=== PATIENT | female | born 1965 | race Caucasian/White ===

== ENCOUNTER 2016-12-10 22:45 | Inpatient (IN) | payer BC, MEDICAID ==
[~2016-12-10] VITALS: Ht 162.6 cm; Wt 96.5 kg
[~2016-12-10 22:45] MED LIST: ATEN25TA PO; BLOOD GLUCOSE T1 TES SQ; BUPR150CR PO; CARA1TAB6 PO; DEXTROSE 50% IN WATER 50 ML VIAL(D50) IV PRN; DULE100A INH; GABA600T PO; GLIP5TAB8 PO; GLUCAGON 1 MG/ML VIAL IM PRN; HYDR-3516 PO; INDO25CA PO; LANTUS2P SQ; LISI-519 PO; LORA-392 PO; LURA40 PO; METR-1 PO; NALOXONE HCL 0.4 MG/ML AMP IV PUSH PRN; OMEGCAP PO; PARO10TA2 PO; PEDISOL2 OROPHARYNG; PIPERACIL-TAZO 4.5 GM PREMIX 100 ML IV SCH; PROT40TA PO; RANI150T PO; SODIUM CHLORIDE 0.9% FLUSH 10 ML FLUSH IV FLUSH PRN; TIZA4CAP3 PO; TRAZ50TA12 PO; TRIL135C PO; TRIL45CA PO; VENTAER INH; ZOFR4TAB PO; ZOFR4TAB3 SL
[2016-12-10 22:55] VITALS: BP 127/66; PULSE 74; RESP 18; TEMP 97.9; O2SAT 96
[2016-12-10 23:14] VITALS: PULSE 75
[2016-12-10] MEDS: ONDANSETRON HCL 4 MG/2 ML VIAL IVP PRN (23:44)
[2016-12-10] MEDS: SODIUM CHLORIDE 0.9% FLUSH 10 ML FLUSH IV FLUSH SCH (23:44)
[2016-12-10] MEDS: SODIUM CHLOR 0.9% 1000 ML INJ 1,000 ML IV SCH (23:44)
[2016-12-11] MEDS ORDERED: PIPERACIL-TAZO 4.5 GM PREMIX 100 ML IV ONE
[2016-12-11] MEDS ORDERED: traZODone HCL 100 MG TAB PO ONE (00:25)
[2016-12-11] MEDS ORDERED: FAMOTIDINE 20 MG TAB PO ONE (00:30)
[2016-12-11] MEDS: MORPHINE SULFATE 4 MG/ML INJ IV PUSH PRN ×4 (00:30→16:04)
[2016-12-11 04:00] VITALS: BP 135/76; PULSE 78; RESP 18; TEMP 96.4; O2SAT 96
[2016-12-11] MEDS: PIPERACIL-TAZO 4.5 GM PREMIX 100 ML IV SCH ×3 (06:16→17:33)
[2016-12-11 07:13] LABS: AUTOMATED NEUTROPHIL # 7.9 TH/MM3 (1.8-7.7); BASOPHIL % 0.2 % (0.0-2.0); EOSINOPHIL # 0.2 TH/MM3 (0-0.4); EOSINOPHIL % 1.4 % (0.0-4.0); HEMATOCRIT 33.5 % (35.0-46.0); LYMPH % 26.3 % (9.0-44.0); MEAN CELL VOLUME 60.7 FL (80.0-100.0); MEAN CORPUSCULAR HEMOGLOBIN 18.3 PG (27.0-34.0); MEAN CORPUSCULAR HGB CONC 30.1 % (32.0-36.0); MONO % 4.1 % (0.0-8.0); PLATELET COUNT 167 TH/MM3 (150-450); RED BLOOD COUNT 5.52 MIL/MM3 (4.00-5.30); RED CELL DISTRIBUTION WIDTH 15.1 % (11.6-17.2); WHITE BLOOD COUNT 11.6 TH/MM3 (4.0-11.0)
[2016-12-11 07:16] LABS: HEMO FLAGS AUTO DIFF
[2016-12-11 07:21] LABS: CHLORIDE 106 MEQ/L (98-107); POTASSIUM 3.9 MEQ/L (3.5-5.1); SODIUM (NA) 142 MEQ/L (136-145)
[2016-12-11 07:25] LABS: ANION GAP 6 MEQ/L (5-15); BICARBONATE 30.1 MEQ/L (21.0-32.0); BLOOD UREA NITROGEN 17 MG/DL (7-18)
[2016-12-11 07:28] LABS: ALT (GPT) 53 U/L (10-53); AST (GOT) 25 U/L (15-37); GLOMERULAR FILTRATION RATE 58 ML/MIN (>89)
[2016-12-11 07:30] LABS: TOTAL BILIRUBIN ADULT 0.8 MG/DL (0.2-1.0)
[2016-12-11 07:31] LABS: ALKALINE PHOSPHATASE 85 U/L (45-117)
[2016-12-11] MEDS: SODIUM CHLOR 0.9% 1000 ML INJ 1,000 ML IV SCH ×2 (07:53→16:05)
[2016-12-11 07:58] LABS: KERATOCYTES OCC (NORMAL); OVALOCYTES 1+ (NORMAL); SCAN/DIFF AUTO DIFF CONFIRMED; TARGET CELLS 1+ (NORMAL); TEARDROP RBCS 1+ (NORMAL)
[2016-12-11] MEDS: SODIUM CHLORIDE 0.9% FLUSH 10 ML FLUSH IV FLUSH SCH ×2 (08:25→21:00)
[2016-12-11 09:48] VITALS: BP 149/83; PULSE 76; RESP 16; TEMP 97.3; O2SAT 92
[2016-12-11] MEDS ORDERED: INFLUENZA VIRUS VACCINE (QUADRIVALENT) 0.5 ML SYR IM ONE (10:00)
[2016-12-11 10:01] VITALS: PULSE 88
[2016-12-11] MEDS: LACTOBACILLUS ACIDOPHILUS TAB PO SCH ×3 (10:09→17:33)
[2016-12-11] MEDS: FAMOTIDINE 20 MG TAB PO SCH ×2 (10:09→21:23)
[2016-12-11] MEDS: ONDANSETRON HCL 4 MG/2 ML VIAL IVP PRN ×2 (10:10→16:09)
--- NOTE | 2016-12-11 11:16 | HHI.HP ---
[facility] Service [facility] Primary Care Physician Kalyani Kern MD Admission Diagnosis Colitis Diagnoses: Travel History International Travel<30 Days: No Contact w/Intl Traveler <30 Da: No Traveled to Known Affected Are: No History of Present Illness This is a pleasant 51-year-old female with past medical history of type 2 diabetes, bipolar disorder, COPD, borderline gastroparesis who presented to the ER yesterday for several day history of diarrhea. The patient saw her primary care physician Dr. Kalyani Kern on December 04 and at that time was having diarrhea, she was noted to have low blood pressure and rapid pulse and was sent to the ER. She was prescribed Flagyl in the ER and discharged home, and subsequently had resolution of the diarrhea. However several days ago she started to have the diarrhea again. She also has some epigastric abdominal pain described as burning is in nature, moderate without alleviating or exacerbating factors. The patient denies fever or chills. She did have one small episode of emesis 3 days ago however none since. She had a colonoscopy several years ago showing diverticulosis. Denies history of diverticulitis. The patient also endorses history of gastritis diagnosed by endoscopy. The patient denies any blood in her stool or dark colored stools. Last loose stool was yesterday. She has had no sick contacts. Abdominal CT scan today shows diverticulosis but no acute intra-abdominal process. She has been tolerating a clear liquid diet and would like to try a regular diet. Review of Systems Constitutional: DENIES: Fever, Weight gain, Weight loss Eyes: DENIES: Blurred vision, Diplopia Ears, nose, mouth, throat: DENIES: Throat pain, Hoarseness Respiratory: DENIES: Cough, Shortness of breath Cardiovascular: DENIES: Chest pain, Syncope Gastrointestinal: COMPLAINS OF: Abdominal pain, DENIES: Black stools, Bloody stools, Constipation Musculoskeletal: DENIES: Stiffness, Neck pain Integumentary: DENIES: Rash Hematologic/lymphatic: DENIES: Lymphadenopathy Neurologic: DENIES: Headache, Localized weakness Psychiatric: DENIES: Anxiety, Confusion Past Family Social History Past Medical History Diabetes mellitus type 2 Borderline gastroparesis Peripheral neuropathy Thalassemia with iron deficiency anemia Allergies/hay fever COPD Hyperlipidemia with history of adverse reaction to statins Anxiety/Depression Schizoaffective Disorder/bipolar disorder Recurrent Lumbar Pain w/ Rt Radiculopathy Fatty liver with transaminitis Reported Medications Allergies Coded Allergies Type Severity Reaction Last Updated Verified codeine Allergy Intermediate skin rash 12/10/16 Yes sulfamethoxazole Allergy Intermediate 12/10/16 Yes trimethoprim Allergy Intermediate 12/10/16 Yes Active Scripts Medications Dose Route/Sig Max Daily Dose Days Date Category Dose Instructions Pedialyte (Oral Electrolytes) 1 Sakshi Sakshi 6 Oz OROPHARYNG Q2HR 12/04/16 Rx Zofran Odt (Ondansetron Odt) 4 Mg Tab 4 Mg SL Q6HR PRN 12/04/16 Rx Flagyl (Metronidazole) 500 Mg Tab 500 Mg PO BID NEB 12/04/16 Rx Carafate (Sucralfate) 1 Gm Tab 1 Gm PO TID 10/31/16 Rx On empty stomach Protonix (Pantoprazole Sodium) 40 Mg Tab 40 Mg PO DAILY 10/31/16 Rx Tizanidine (Tizanidine HCl) 4 Mg Cap 4 Mg PO TID 10/31/16 Reported Zofran (Ondansetron HCl) 4 Mg Tab 4 Mg PO Q8HR PRN 10/31/16 Reported Paroxetine (Paroxetine HCl) 10 Mg Tab 10 Mg PO DAILY 10/31/16 Reported Ventolin Hfa 18 GM Inh (Albuterol Sulfate) 90 Mcg/Act Aer 2 Puff INH Q4-6H PRN 10/31/16 Reported [place]-3 Fish Oil/Vitamin (Fish Oil-Cholecalciferol) 1,000-1,000 Mg Cap 1 Cap PO DAILY 10/27/16 Rx Blood Glucose Test Strips 1 Shey Shey 1 Ea SQ QID 10/24/16 Rx Indomethacin 25 Mg Cap 25 Mg PO TID 10/19/16 Rx Take with food, milk, or antacids to decrease stomach adverse effects. Glipizide 5 Mg Tab 5 Mg PO BIDAC 10/14/16 Rx Lantus Inj (Insulin Glargine) 1,000 Unit/10 Ml Vial 50 Units SQ BID 10/14/16 Rx Wellbutrin SR 12 HR (Bupropion HCl) 150 Mg Tab 150 Mg PO Q12HR 10/14/16 Rx Take once daily for 5 days then increase to twice daily thereafter. Continue for 3 months to quit smoking. Lisinopril 5 Mg Tab 1 Tab PO DAILY 10/14/16 Rx Gabapentin 600 Mg Tab 600 Mg PO TID 10/14/16 Rx Managed by Pain Management Atenolol 25 Mg Tab 12.5 Mg PO DAILY 10/14/16 Rx Ranitidine (Ranitidine HCl) 150 Mg Tab 150 Mg PO BID PRN 10/14/16 Rx Ventolin Hfa 18 GM Inh (Albuterol Sulfate) 90 Mcg/Act Aer 2 Puff INH Q4-6H PRN 10/14/16 Rx Pharmacy: change to insurance approved equivalent if needed Dulera 120 Act Inh (Mometasone-Formoterol 120 Act Inh) 100-5 Mcg/Act Inh 2 Puff INH BID 10/14/16 Rx Trilipix (Choline Fenofibrate DR) 45 Mg Capdr 45 Mg PO DAILY 10/08/16 Rx Trilipix (Choline Fenofibrate DR) 135 Mg Capdr 135 Mg PO DAILY 07/14/16 Rx Take every day Hydrocodone-Acetaminophen 5-325 mg Tab 1 Tab PO Q4H PRN 07/14/16 Reported Managed by Pain Mgmt Ativan (Lorazepam) 0.5 Mg Tab 0.5 Mg PO BID PRN 04/29/16 Reported Rx'ed by Psychiatry Trazodone (Trazodone HCl) 50 Mg Tab 100 Mg PO HS 02/04/16 Reported Rx'ed by Psychiatry Latuda (Lurasidone) 40 Mg Tab 80 Mg PO DAILY 02/04/16 Reported Rx'ed by Psychiatry Allergies: Coded Allergies: codeine (Verified Allergy, Intermediate, skin rash, 12/10/16) Per pt. sulfamethoxazole (Verified Allergy, Intermediate, 12/10/16) intense itching trimethoprim (Verified Allergy, Intermediate, 12/10/16) intense itching Family History Negative for inflammatory bowel disease Social History No alcohol tobacco or drug use Physical Exam Vital Signs Vital Signs Date Time Temp Pulse Resp B/P (MAP) Pulse Ox O2 Delivery O2 Flow Rate FiO2 12/11/16 09:48 97.3 76 16 149/83 (105) 92 12/11/16 04:00 96.4 78 18 135/76 (95) 96 12/10/16 23:14 75 12/10/16 22:55 97.9 74 18 127/66 (86) 96 Physical Exam GENERAL: Well-nourished, well-developed pleasant female patient in no apparent distress. SKIN: Warm and dry. HEAD: Normocephalic. EYES: No scleral icterus. No injection or drainage. NECK: Supple, trachea midline. No JVD or lymphadenopathy. CARDIOVASCULAR: Regular rate and rhythm without murmurs, gallops, or rubs. RESPIRATORY: Breath sounds equal bilaterally. No accessory muscle use. GASTROINTESTINAL: Bowel sounds normoactive. Abdomen soft, mildly tender in epigastrium without guarding or rebound tenderness, nondistended. EXTREMITIES: No cyanosis, or edema. NEUROLOGICAL: Awake, alert, and oriented x 3. Non-focal. Laboratory Laboratory Tests Test 12/11/16 05:45 White Blood Count 11.6 Red Blood Count 5.52 Hemoglobin 10.1 Hematocrit 33.5 Mean Corpuscular Volume 60.7 Mean Corpuscular Hemoglobin 18.3 Mean Corpuscular Hemoglobin Concent 30.1 Red Cell Distribution Width 15.1 Platelet Count 167 Mean Platelet Volume 8.7 Neutrophils (%) (Auto) 68.0 Lymphocytes (%) (Auto) 26.3 Monocytes (%) (Auto) 4.1 Eosinophils (%) (Auto) 1.4 Basophils (%) (Auto) 0.2 Neutrophils # (Auto) 7.9 Lymphocytes # (Auto) 3.0 Monocytes # (Auto) 0.5 Eosinophils # (Auto) 0.2 Basophils # (Auto) 0.0 CBC Comment AUTO DIFF Differential Comment AUTO DIFF CONFIRMED Target Cells 1+ Tear Drop Cells 1+ Ovalocytes 1+ Keratocytes OCC Blood Urea Nitrogen 17 Creatinine 1.00 Random Glucose 148 Total Protein 6.6 Albumin 3.4 Calcium Level 8.3 Alkaline Phosphatase 85 Aspartate Amino Transf (AST/SGOT) 25 Alanine Aminotransferase (ALT/SGPT) 53 Total Bilirubin 0.8 Sodium Level 142 Potassium Level 3.9 Chloride Level 106 Carbon Dioxide Level 30.1 Anion Gap 6 Estimat Glomerular Filtration Rate 58 Result Diagram: 12/11/1645 12/11/1645 Caprini VTE Risk Assessment Caprini VTE Risk Assessment: No/Low Risk (score <= 1) Caprini Risk Assessment Model Point Value = 1 Point Value = 2 Point Value = 3 Point Value = 5 Age 41-60 Minor surgery BMI > 25 kg/m2 Swollen legs Varicose veins or History of unexplained or recurrent spontaneous Oral contraceptives or hormone replacement Sepsis (< 1 month) Serious lung disease, including pneumonia (< 1 month) Abnormal pulmonary function Acute myocardial infarction Congestive heart failure (< 1 month) History of inflammatory bowel disease Medical patient at bed rest Age 61-74 Arthroscopic surgery Major open surgery (> 45 min) Laparoscopic surgery (> 45 min) Malignancy Confined to bed (> 72 hours) Immobilizing plaster cast Central venous access Age >= 75 History of VTE Family history of VTE Factor V Leiden Prothrombin [id number] Lupus anticoagulant Anticardiolipin antibodies Elevated serum homocysteine Heparin-induced thrombocytopenia Other congenital or acquired thrombophilia Stroke (< 1 month) Elective arthroplasty Hip, pelvis, or leg fracture Acute spinal cord injury (< 1 month) Prophylaxis Regimen Total Risk Factor Score Risk Level Prophylaxis Regimen 0-1 Low Early ambulation 2 Moderate Order ONE of the following: *Sequential Compression Device (SCD) *Heparin 5000 units SQ BID 3-4 Higher Order ONE of the following medications: *Heparin 5000 units SQ TID *Enoxaparin/Lovenox 40 mg SQ daily (WT < 150 kg, CrCl > 30 mL/min) *Enoxaparin/Lovenox 30 mg SQ daily (WT < 150 kg, CrCl > 10-29 mL/min) *Enoxaparin/Lovenox 30 mg SQ BID (WT < 150 kg, CrCl > 30 mL/min) AND/OR *Sequential Compression Device (SCD) 5 or more Highest Order ONE of the following medications: *Heparin 5000 units SQ TID (Preferred with Epidurals) *Enoxaparin/Lovenox 40 mg SQ daily (WT < 150 kg, CrCl > 30 mL/min) *Enoxaparin/Lovenox 30 mg SQ daily (WT < 150 kg, CrCl > 10-29 mL/min) *Enoxaparin/Lovenox 30 mg SQ BID (WT < 150 kg, CrCl > 30 mL/min) AND *Sequential Compression Device (SCD) Assessment and Plan Problem List: (1) Colitis ICD Code: K52.9 - Noninfective gastroenteritis and colitis, unspecified (2) ALBA (acute kidney injury) ICD Code: N17.9 - Acute kidney failure, unspecified (3) Abdominal pain ICD Code: R10.9 - Unspecified abdominal pain Status: Acute Assessment and Plan -Recurrent diarrhea, presumably infectious colitis - second recurrence in as many weeks, also has leukocytosis. Will check stool for C. difficile. Abdominal CT scan was without evidence of colitis or acute intra-abdominal process. Continue Zosyn IV pending C. difficile studies. Continue supportive care with IV fluids. As she is not having any emesis we will advance her diet. -Acute kidney injury secondary to dehydration, resolved. Monitor BMP. -Diabetes mellitus type 2 - place on sliding scale insulin with Accu-Cheks -Borderline gastroparesis - not symptomatic at this time -Peripheral neuropathy - continue gabapentin -Thalassemia with iron deficiency anemia -monitor CBC -COPD - bronchodilators as needed -anxiety/depression/bipolar d/o - resume home medications to include Paxil, latuda, Wellbutrin, trazodone -Fatty liver with transaminitis -History of gastritis - continue PPI and sulcralafate -DVT px - Lovenox subcutaneous Alexa Stauffer MD Dec 11, 2016 11:16
[2016-12-11 12:49] VITALS: BP 131/71; PULSE 76; RESP 15; TEMP 97.3; O2SAT 97
[2016-12-11] MEDS ORDERED: FAMOTIDINE 20 MG TAB PO PRN (14:00)
[2016-12-11] MEDS ORDERED: PILL SPLITTER OTHER PRN (14:00)
[2016-12-11] MEDS ORDERED: GLUCAGON 1 MG/ML VIAL OTHER PRN (17:00)
[2016-12-11] MEDS ORDERED: DEXTROSE 50% IN WATER 50 ML VIAL(D50) IV PUSH PRN (17:00)
[2016-12-11] MEDS: INSULIN ASPART SUPPLEMENTAL SCALE SQ SCH ×2 (17:00→21:38)
[2016-12-11] MEDS: GABAPENTIN 300 MG CAP PO SCH (17:33)
[2016-12-11] MEDS: LORazepam 0.5 MG TAB PO PRN (17:33)
[2016-12-11] MEDS: SUCRALFATE 1 GM TAB PO SCH (17:33)
[2016-12-11 17:51] VITALS: BP 148/81; PULSE 73; RESP 16; TEMP 97.6; O2SAT 95
[2016-12-11 19:57] LABS: C. DIFF EPI 027 PRESUMPTIVE NEGATIVE (NEGATIVE)
[2016-12-11 20:00] VITALS: BP 156/97; PULSE 73; PULSE 75; RESP 18; TEMP 97.5; O2SAT 94
[2016-12-11] MEDS: buPROPion HCL 150 MG SUSTAINED RELEASE TAB PO SCH (21:21)
[2016-12-11] MEDS: traZODone HCL 100 MG TAB PO SCH (21:23)
[2016-12-12] VITALS (8 sets, daily range): BP systolic 117–145; BP diastolic 66–95; PULSE 68–75; RESP 16–19; TEMP 97.6–98.6; O2SAT 91–98
[2016-12-12] MEDS: PIPERACIL-TAZO 4.5 GM PREMIX 100 ML IV SCH ×5 (00:36→23:27)
[2016-12-12] MEDS: SODIUM CHLOR 0.9% 1000 ML INJ 1,000 ML IV SCH (03:45)
[2016-12-12 05:43] LABS: AUTOMATED NEUTROPHIL # 4.8 TH/MM3 (1.8-7.7); BASOPHIL % 0.5 % (0.0-2.0); EOSINOPHIL # 0.2 TH/MM3 (0-0.4); HEMATOCRIT 31.9 % (35.0-46.0); LYMPH % 26.4 % (9.0-44.0); LYMPHOCYTE # 1.9 TH/MM3 (1.0-4.8); MEAN CELL VOLUME 60.3 FL (80.0-100.0); MEAN CORPUSCULAR HEMOGLOBIN 18.1 PG (27.0-34.0); MONO % 6.9 % (0.0-8.0); NEUT % 63.2 % (16.0-70.0); PLATELET COUNT 175 TH/MM3 (150-450); RED BLOOD COUNT 5.28 MIL/MM3 (4.00-5.30); RED CELL DISTRIBUTION WIDTH 15.3 % (11.6-17.2); WHITE BLOOD COUNT 7.4 TH/MM3 (4.0-11.0)
[2016-12-12 05:47] LABS: HEMO FLAGS AUTO DIFF
[2016-12-12 05:51] LABS: BICARBONATE 29.5 MEQ/L (21.0-32.0)
[2016-12-12 06:07] LABS: OVALOCYTES 1+ (NORMAL); PLATELET ESTIMATE SMEAR NORMAL (NORMAL); PLATELET MORPHOLOGY NORMAL (NORMAL); SCAN/DIFF AUTO DIFF CONFIRMED
[2016-12-12] MEDS: SUCRALFATE 1 GM TAB PO SCH ×3 (07:47→17:00)
[2016-12-12] MEDS: SODIUM CHLORIDE 0.9% FLUSH 10 ML FLUSH IV FLUSH SCH ×2 (07:47→21:54)
[2016-12-12] MEDS: ACETAMINOPHEN/HYDROcodone 325 MG/5 MG TAB PO PRN ×3 (08:33→23:26)
[2016-12-12] MEDS: GABAPENTIN 300 MG CAP PO SCH ×3 (08:34→17:01)
[2016-12-12] MEDS: LURASIDONE 40 MG TAB PO SCH (08:34)
[2016-12-12] MEDS: PANTOPRAZOLE SOD 40 MG DELAYED RELEASE TAB PO SCH (08:34)
[2016-12-12] MEDS: FAMOTIDINE 20 MG TAB PO SCH ×2 (08:34→21:53)
[2016-12-12] MEDS: ATENOLOL 25 MG TAB PO SCH (08:35)
[2016-12-12] MEDS: buPROPion HCL 150 MG SUSTAINED RELEASE TAB PO SCH ×2 (08:35→21:53)
[2016-12-12] MEDS: PARoxetine HCL 20 MG TAB PO SCH (08:35)
[2016-12-12] MEDS: LISINOPRIL 5 MG TAB PO SCH (08:35)
[2016-12-12] MEDS: LACTOBACILLUS ACIDOPHILUS TAB PO SCH ×3 (08:35→17:00)
[2016-12-12] MEDS: INSULIN ASPART SUPPLEMENTAL SCALE SQ SCH ×4 (08:36→21:54)
[2016-12-12] MEDS: ONDANSETRON HCL 4 MG/2 ML VIAL IVP PRN ×3 (08:43→23:27)
[2016-12-12] MEDS ORDERED: NON-FORMULARY DRUG (Fish Oil-Cholecalciferol (Omega-3 Fish Oil/Vitamin) 1 CAP) PO SCH (09:00)
[2016-12-12] MEDS: MORPHINE SULFATE 4 MG/ML INJ IV PUSH PRN (09:26)
--- NOTE | 2016-12-12 10:45 | HHI.PR ---
Subjective Remarks Patient states she has not had any further diarrhea, she did have one loose stool yesterday. No vomiting however she feels quite nauseated. She was able to eat a muffin for breakfast. She is still having some burning epigastric pain. Objective Vitals Vital Signs Date Time Temp Pulse Resp B/P (MAP) Pulse Ox O2 Delivery O2 Flow Rate FiO2 12/12/16 08:44 97.6 75 19 145/89 (107) 98 12/12/16 05:08 97 12/12/16 05:08 97 Nasal Cannula 1.00 12/12/16 04:20 90 Nasal Cannula 1.00 12/12/16 04:00 98.1 71 16 132/80 (97) 91 12/12/16 00:00 98.2 72 18 136/95 (109) 93 12/11/16 20:00 75 12/11/16 20:00 97.5 73 18 156/97 (116) 94 12/11/16 17:51 97.6 73 16 148/81 (103) 95 12/11/16 12:49 97.3 76 15 131/71 (91) 97 I/O 12/11/16 12/11/16 12/11/16 12/12/16 12/12/16 12/12/16 07:00 15:00 23:00 07:00 15:00 23:00 Intake Total 1258 ml 322 ml 2027 ml 1684 ml 214 ml Balance 1258 ml 322 ml 2027 ml 1684 ml 214 ml Intake Oral 480 ml 1200 ml 480 ml IV Total 778 ml 322 ml 827 ml 1204 ml 214 ml # Voids 5 6 3 # Bowel Movements 0 1 0 Result Diagram: 12/12/1652512/12/16525 Objective Remarks GENERAL: Well-nourished, well-developed pleasant female patient. SKIN: Warm and dry. HEAD: Normocephalic. EYES: No scleral icterus. No injection or drainage. NECK: Supple, trachea midline. No JVD or lymphadenopathy. CARDIOVASCULAR: Regular rate and rhythm without murmurs, gallops, or rubs. RESPIRATORY: Breath sounds equal bilaterally. No accessory muscle use. GASTROINTESTINAL: Abdomen soft, non-tender, nondistended. EXTREMITIES: No cyanosis, or edema. NEUROLOGICAL: Awake, alert, and oriented x 3. Non-focal. A/P Problem List: (1) Colitis ICD Code: K52.9 - Noninfective gastroenteritis and colitis, unspecified (2) ALBA (acute kidney injury) ICD Code: N17.9 - Acute kidney failure, unspecified (3) Abdominal pain ICD Code: R10.9 - Unspecified abdominal pain Status: Acute Assessment and Plan -Recurrent diarrhea, presumably infectious colitis - second recurrence in as many weeks, also had leukocytosis. stool was negative for C. difficile. Abdominal CT scan was without evidence of colitis or acute intra-abdominal process. She is clinically improved today, no further loose stools however she has significant nausea, leukocytosis resolved. Continue Zosyn IV. She is tolerating regular diets I will Hep-Lock IV. -Acute kidney injury secondary to dehydration, resolved. Monitor BMP. -Diabetes mellitus type 2 - place on sliding scale insulin with Accu-Cheks -Borderline gastroparesis - not symptomatic at this time -Peripheral neuropathy - continue gabapentin -Thalassemia with iron deficiency anemia -monitor CBC -COPD - bronchodilators as needed -anxiety/depression/bipolar d/o - resume home medications to include Paxil, latuda, Wellbutrin, trazodone -Fatty liver with transaminitis -History of gastritis - continue PPI and sulcralafate -DVT px - Lovenox subcutaneous Discharge Planning Likely discharge home tomorrow if continued clinical improvement. Alexa Stauffer MD Dec 12, 2016 10:45
[2016-12-12] MEDS: LORazepam 0.5 MG TAB PO PRN (16:29)
[2016-12-12] MEDS: traZODone HCL 100 MG TAB PO SCH (21:53)
[2016-12-13 01:49] VITALS: BP 94/62; PULSE 65; RESP 16; TEMP 97.4; O2SAT 90
[2016-12-13 04:00] VITALS: BP 90/62; PULSE 70; RESP 18; TEMP 98.3; O2SAT 92
[2016-12-13] MEDS: PIPERACIL-TAZO 4.5 GM PREMIX 100 ML IV SCH ×2 (06:00→11:42)
[2016-12-13 08:00] VITALS: BP 139/83; PULSE 63; RESP 16; TEMP 96.7; O2SAT 91
[2016-12-13] MEDS: LISINOPRIL 5 MG TAB PO SCH (08:11)
[2016-12-13] MEDS: PANTOPRAZOLE SOD 40 MG DELAYED RELEASE TAB PO SCH (08:12)
[2016-12-13] MEDS: LACTOBACILLUS ACIDOPHILUS TAB PO SCH (08:12)
[2016-12-13] MEDS: SUCRALFATE 1 GM TAB PO SCH (08:12)
[2016-12-13] MEDS: LURASIDONE 40 MG TAB PO SCH (08:12)
[2016-12-13] MEDS: PARoxetine HCL 20 MG TAB PO SCH (08:14)
[2016-12-13] MEDS: GABAPENTIN 300 MG CAP PO SCH (08:14)
[2016-12-13] MEDS: buPROPion HCL 150 MG SUSTAINED RELEASE TAB PO SCH (08:14)
[2016-12-13] MEDS: ATENOLOL 25 MG TAB PO SCH (08:14)
[2016-12-13] MEDS: FAMOTIDINE 20 MG TAB PO SCH (08:14)
[2016-12-13] MEDS: SODIUM CHLORIDE 0.9% FLUSH 10 ML FLUSH IV FLUSH SCH (08:15)
[2016-12-13] MEDS: INSULIN ASPART SUPPLEMENTAL SCALE SQ SCH ×2 (08:24→11:42)
[2016-12-13] MEDS: ONDANSETRON HCL 4 MG/2 ML VIAL IVP PRN (08:56)
[2016-12-13] MEDS: MORPHINE SULFATE 4 MG/ML INJ IV PUSH PRN (09:34)
[2016-12-13 09:40] VITALS: RESP 18
[2016-12-13 11:36] VITALS: PULSE 67
[2016-12-13] MEDS ORDERED: AMOX500C PO (11:41)
[2016-12-13] MEDS ORDERED: ZOFR4TAB3 SL (11:41)
[2016-12-13] MEDS ORDERED: ZOFR4TAB PO (11:41)
[2016-12-13] MEDS ORDERED: LACTCHW3 CHEW (11:41)
--- NOTE | 2016-12-13 11:45 | HHI.DS ---
Discharge Summary Admission Date Dec 10, 2016 at 22:55 Discharge Date: Dec 13, 2016 Admitting Diagnosis Colitis (1) Colitis ICD Code: K52.9 - Noninfective gastroenteritis and colitis, unspecified (2) ALBA (acute kidney injury) ICD Code: N17.9 - Acute kidney failure, unspecified (3) Abdominal pain ICD Code: R10.9 - Unspecified abdominal pain Status: Acute Procedures None Brief History - From Admission This is a pleasant 51-year-old female with past medical history of type 2 diabetes, bipolar disorder, COPD, borderline gastroparesis who presented to the ER for several day history of diarrhea. The patient saw her primary care physician Dr. Kalyani Kern on December 04 and at that time was having diarrhea, she was noted to have low blood pressure and rapid pulse and was sent to the ER. She was prescribed Flagyl in the ER and discharged home, and subsequently had resolution of the diarrhea. However several days ago she started to have the diarrhea again. She also has some epigastric abdominal pain described as burning is in nature, moderate without alleviating or exacerbating factors. The patient denies fever or chills. She did have one small episode of emesis 3 days ago however none since. She had a colonoscopy several years ago showing diverticulosis. Denies history of diverticulitis. The patient also endorses history of gastritis diagnosed by endoscopy. The patient denies any blood in her stool or dark colored stools. Last loose stool was yesterday. She has had no sick contacts. Abdominal CT scan in ED showed diverticulosis but no acute intra-abdominal process. She has been tolerating a clear liquid diet and would like to try a regular diet. CBC/BMP: 12/12/16 0526 12/12/16 0526 Significant Findings Laboratory Tests Test 12/11/16 05:45 12/11/16 15:00 12/12/16 05:26 White Blood Count 11.6 TH/MM3 (4.0-11.0) Red Blood Count 5.52 MIL/MM3 (4.00-5.30) Hemoglobin 10.1 GM/DL (11.6-15.3) 9.6 GM/DL (11.6-15.3) Hematocrit 33.5 % (35.0-46.0) 31.9 % (35.0-46.0) Mean Corpuscular Volume 60.7 FL (80.0-100.0) 60.3 FL (80.0-100.0) Mean Corpuscular Hemoglobin 18.3 PG (27.0-34.0) 18.1 PG (27.0-34.0) Mean Corpuscular Hemoglobin Concent 30.1 % (32.0-36.0) 30.0 % (32.0-36.0) Neutrophils # (Auto) 7.9 TH/MM3 (1.8-7.7) Target Cells 1+ (NORMAL) Tear Drop Cells 1+ (NORMAL) Ovalocytes 1+ (NORMAL) 1+ (NORMAL) Keratocytes OCC (NORMAL) Random Glucose 148 MG/DL (74-106) 155 MG/DL (74-106) Calcium Level 8.3 MG/DL (8.5-10.1) 8.2 MG/DL (8.5-10.1) Estimat Glomerular Filtration Rate 58 ML/MIN (>89) 68 ML/MIN (>89) Chloride Level 108 MEQ/L (98-107) PE at Discharge GENERAL: Well-nourished, well-developed pleasant female patient. SKIN: Warm and dry. HEAD: Normocephalic. EYES: No scleral icterus. No injection or drainage. NECK: Supple, trachea midline. No JVD or lymphadenopathy. CARDIOVASCULAR: Regular rate and rhythm without murmurs, gallops, or rubs. RESPIRATORY: Breath sounds equal bilaterally. No accessory muscle use. GASTROINTESTINAL: Abdomen soft, non-tender, nondistended. EXTREMITIES: No cyanosis, or edema. NEUROLOGICAL: Awake, alert, and oriented x 3. Non-focal. Hospital Course The patient was admitted to the hospital and treated with Zosyn IV. Diarrhea resolved. Stool for C. difficile was negative. The patient had no vomiting. She did continue to have nausea and epigastric pain. Her PPI and H2 karlie were continued. The patient today continues to have nausea and epigastric burning pain. 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 She does have history of gastritis. The patient was advised to continue her PPI, Carafate and H2 karlie. The patient was given the option of having GI see her here in the hospital versus following up with her GIs outpatient. The patient would like to be discharged home and will follow-up with her primary care physician this week and will see her metal casting trades worker that the epigastric pain continue. She'll be given a prescription for amoxicillin, lactic next, and Zofran as needed for nausea. She is instructed to return to the ER should she develop worsening abdominal pain, nausea vomiting or fever. Patient voices understanding of the plan. Pt Condition on Discharge: Stable Discharge Disposition: Discharge Home Discharge Time: > 30 minutes Discharge Instructions DIET: Follow Instructions for: Diabetic Diet Activities you can perform: Regular-No Restrictions Follow up Referrals: PCP Follow-up - 3-5 Days New Medications: Amoxicillin (Amoxicillin) 500 Mg Cap 500 MG PO TID for Infection, #21 CAP 0 Refills Lactobacillus Acidophilus (Lactinex) 1 Chew 1 TAB CHEW TID for Nutritional Supplement, #21 TAB 0 Refills Continued Medications: Albuterol 18 GM Inh (Ventolin Hfa 18 GM Inh) 90 Mcg/Act Aer 2 PUFF INH Q4-6H PRN for SHORTNESS OF BREATH, #1 INHALER 5 Refills Pharmacy: change to insurance approved equivalent if needed Albuterol 18 GM Inh (Ventolin Hfa 18 GM Inh) 90 Mcg/Act Aer 2 PUFF INH Q4-6H PRN for SHORTNESS OF BREATH, #1 INHALER 0 Refills Atenolol (Atenolol) 25 Mg Tab 12.5 MG PO DAILY for Blood Pressure Management, #90 TAB 0 Refills Bupropion HCl ER 12 HR (Wellbutrin SR 12 HR) 150 Mg Tab 150 MG PO Q12HR for Smoking Cessation, #60 TAB 2 Refills Take once daily for 5 days then increase to twice daily thereafter. Continue for 3 months to quit smoking. Choline Fenofibrate DR (Trilipix) 135 Mg Capdr 135 MG PO DAILY for High Triglycerides, #90 CAP 0 Refills Take every day Choline Fenofibrate DR (Trilipix) 45 Mg Capdr 45 MG PO DAILY for Cholesterol Management, #30 CAP 2 Refills Fish Oil-Cholecalciferol ([place]-3 Fish Oil/Vitamin) 1,000-1,000 Mg Cap 1 CAP PO DAILY for Nutritional Supplement, #90 CAP 2 Refills Gabapentin (Gabapentin) 600 Mg Tab 600 MG PO TID for Neuropathy, #270 TAB 0 Refills Managed by Pain Management Glipizide (Glipizide) 5 Mg Tab 5 MG PO BIDAC for Blood Sugar Management, #180 TAB 0 Refills Hydrocodone-Acetaminophen (Hydrocodone-Acetaminophen) 5-325 mg Tab 1 TAB PO Q4H PRN for PAIN, TAB 0 Refills Managed by Pain Mgmt Indomethacin (Indomethacin) 25 Mg Cap 25 MG PO TID, #15 CAP 0 Refills Take with food, milk, or antacids to decrease stomach adverse effects. Insulin Glargine Inj (Lantus Inj) 1,000 Unit/10 Ml Vial 50 UNITS SQ BID for Blood Sugar Management, #3 VIAL 1 Refill Lisinopril (Lisinopril) 5 Mg Tab 1 TAB PO DAILY for Blood Pressure Management, #90 TAB 0 Refills Lorazepam (Ativan) 0.5 Mg Tab 0.5 MG PO BID PRN for ANXIETY AND/OR AGITATION, TAB 0 Refills Rx'ed by Psychiatry Lurasidone (Latuda) 40 Mg Tab 80 MG PO DAILY, #30 TAB 0 Refills Rx'ed by Psychiatry Mometasone-Formoterol 120 Act Inh (Dulera 120 Act Inh) 100-5 Mcg/Act Inh 2 PUFF INH BID for COPD management, #1 INHALER 5 Refills Ondansetron (Zofran) 4 Mg Tab 4 MG PO Q8HR PRN for NAUSEA OR VOMITING, #30 TAB 0 Refills (This prescription has been renewed) Ondansetron Odt (Zofran Odt) 4 Mg Tab 4 MG SL Q6HR PRN for Nausea/Vomiting, #6 TAB 0 Refills (This prescription has been renewed) Oral Electrolytes (Pedialyte) 1 Sakshi Sakshi 6 OZ OROPHARYNG Q2HR for Diarrhea, #1 LITER Pantoprazole (Protonix) 40 Mg Tab 40 MG PO DAILY for Ulcer Prevention, #30 TAB 0 Refills Paroxetine (Paroxetine) 10 Mg Tab 10 MG PO DAILY, #30 TAB 0 Refills Ranitidine (Ranitidine) 150 Mg Tab 150 MG PO BID PRN for REFLUX, #180 TAB 1 Refill Sucralfate (Carafate) 1 Gm Tab 1 GM PO TID for Ulcer Prevention, #90 TAB 0 Refills On empty stomach Tizanidine (Tizanidine) 4 Mg Cap 4 MG PO TID for Muscle Spasm, CAP 0 Refills Trazodone (Trazodone) 50 Mg Tab 100 MG PO HS for Control Depression, #30 TAB 0 Refills Rx'ed by Psychiatry Discontinued Medications: Metronidazole (Flagyl) 500 Mg Tab 500 MG PO BID NEB for Infection, #20 TAB 0 Refills Alexa Stauffer MD Dec 13, 2016 11:45
[2016-12-17] MEDS ORDERED: TRIL45CA PO (15:01)
[2016-12-17] MEDS ORDERED: CARA1TAB6 PO (15:01)
[2016-12-17] MEDS ORDERED: MICO1CRE2 VAGINAL (15:07)
[2016-12-19] MEDS ORDERED: SUCR1S PO (10:33)
[2016-12-25] MEDS ORDERED: RANI150T PO (16:54)
[2017-01-13] MEDS ORDERED: LANTUS2P SQ (23:18)
== END 2016-12-13 12:42 | disposition home or self-care (01) | DRG 392 ==
LOC: NEDDLT 22:45 → PH3A 22:55
PROVIDERS: ADMIT Family Medicine; ATTEND Family Medicine
DX: K52.9 Noninfective gastroenteritis and colitis, unspecified (principal); N17.9 Acute kidney failure, unspecified; G62.9 Polyneuropathy, unspecified; K31.84 Gastroparesis; E11.43 Type 2 diabetes mellitus with diabetic autonomic (poly)neuropathy; K76.0 Fatty (change of) liver, not elsewhere classified; E86.0 Dehydration; J44.9 Chronic obstructive pulmonary disease, unspecified; D56.9 Thalassemia, unspecified; D50.9 Iron deficiency anemia, unspecified; F31.9 Bipolar disorder, unspecified; F41.8 Other specified anxiety disorders; K29.70 Gastritis, unspecified, without bleeding; R74.0 Nonspecific elevation of levels of transaminase and lactic acid dehydrogenase [LDH]; E78.5 Hyperlipidemia, unspecified; F25.9 Schizoaffective disorder, unspecified; K57.90 Diverticulosis of intestine, part unspecified, without perforation or abscess without bleeding
CPT/HCPCS: 74177; 80048; 80053; 81001; 82948; 83690; 85007; 85025; 85027; 85610; 85730; 87040; 87086; 87493; 90686; 96361; 96365; 96366; 96368; 96375; 96376; J1815; J2270; J2405; J2543; J3370; J7030; J7050; Q2038; Q9967

== ENCOUNTER 2017-01-26 17:42 | Observation (INO) | payer BC, MEDICAID ==
[2017-01-26] MEDS: INSULIN NovoLIN REGULAR SUPPLEMENTAL SCALE SQ SCH ×2 (17:00→20:38)
[~2017-01-26 17:42] MED LIST changes: +ALBUTEROL SULFATE 90 MCG/ACT HFA 8 GM INHALER INH PRN; +AMOX500C PO; -CARA1TAB6 PO; -DEXTROSE 50% IN WATER 50 ML VIAL(D50) IV PRN; +DEXTROSE 50% IN WATER 50 ML VIAL(D50) IV PUSH PRN; +FAMOTIDINE 20 MG TAB PO PRN; -GLIP5TAB8 PO; -GLUCAGON 1 MG/ML VIAL IM PRN; +GLUCAGON 1 MG/ML VIAL OTHER PRN; -INDO25CA PO; +LACTCHW3 CHEW; +LORazepam 0.5 MG TAB PO PRN; +MAGNESIUM HYDROXIDE SUSP 30 ML CUP PO PRN; -METR-1 PO; +MICO1CRE2 VAGINAL; +MORPHINE SULFATE 4 MG/ML INJ IV PUSH PRN; +NITROGLYCERIN 0.4 MG SL 25 TABS/BTL SL PRN; -PEDISOL2 OROPHARYNG; -PIPERACIL-TAZO 4.5 GM PREMIX 100 ML IV SCH; -PROT40TA PO; +SUCR1S PO; -TRIL135C PO; -ZOFR4TAB PO; -ZOFR4TAB3 SL
--- NOTE | 2017-01-26 18:20 | HHI.HP ---
[facility] Service [facility] Primary Care Physician Kalyani Kern MD Admission Diagnosis Diagnoses: (1) Chest pain Diagnosis: Principal (2) Diabetic peripheral neuropathy Diagnosis: Secondary (3) DM (diabetes mellitus), type 2, uncontrolled Diagnosis: Secondary (4) Hypertension, goal below 140/90 Diagnosis: Secondary (5) Hyperlipidemia with target LDL less than 100 Diagnosis: Secondary Travel History International Travel<30 Days: No Contact w/Intl Traveler <30 Da: No Traveled to Known Affected Are: No History of Present Illness Mrs. Duncan is a 51-year-old female. She came in to the [facility] ER secondary to chest pain. She describes the pain as tight in the left side of her chest. She has had chest pain in the past and has had an ACS workup in the past that she reports is negative. Risk factors include heavy smoking, diabetes mellitus type 2, and a positive family history with myocardial infarctions that both her mother and father. She also likely has obstructive sleep apnea that has not formally been diagnosed. Presently she continues to have chest pain. It is not triggered by activity movement or breathing. No point tenderness. No nausea or vomiting. No diaphoresis. No syncope or presyncope. No other complaints today. Review of Systems Constitutional: DENIES: Fatigue, Fever, Chills, Night Sweats Eyes: DENIES: Blurred vision, Diplopia, Eye inflammation, Eye pain Ears, nose, mouth, throat: DENIES: Tinnitus, Hearing loss, Vertigo, Nasal discharge Respiratory: DENIES: Apneas, Cough, Snoring, Wheezing, Shortness of breath Cardiovascular: COMPLAINS OF: Chest pain, DENIES: Palpitations, Syncope Gastrointestinal: DENIES: Abdominal pain, Black stools, Bloody stools Musculoskeletal: DENIES: Joint pain, Muscle aches, Stiffness Integumentary: DENIES: Abnormal pigmentation, Pruritus, Rash Hematologic/lymphatic: DENIES: Bruising, Lymphadenopathy Immunologic/allergic: DENIES: Eczema, Urticaria Neurologic: DENIES: Abnormal gait, Headache, Paresthesias Psychiatric: DENIES: Anxiety, Confusion, Hallucinations Past Family Social History Past Medical History Diabetes mellitus type 2 COPD Hypertension Hyperlipidemia Diabetic neuropathy Chronic abdominal pain Chronic back pain Past Surgical History Cholecystectomy Reported Medications Reported Meds & Active Scripts Active Lantus Inj (Insulin Glargine) 1,000 Unit/10 Ml Vial 50 Units SQ BID Ranitidine (Ranitidine HCl) 150 Mg Tab 150 Mg PO BID PRN Sucralfate Liq (Sucralfate) 1 Gram/10 Ml Ingrid 1 Gm PO QID on empty stomach Trilipix (Choline Fenofibrate DR) 45 Mg Capdr 45 Mg PO DAILY Lactinex (Lactobacillus Acidophilus) 1 Chew 1 Tab CHEW TID [place]-3 Fish Oil/Vitamin (Fish Oil-Cholecalciferol) 1,000-1,000 Mg Cap 1 Cap PO DAILY Wellbutrin SR 12 HR (Bupropion HCl) 150 Mg Tab 150 Mg PO Q12HR Take once daily for 5 days then increase to twice daily thereafter. Continue for 3 months to quit smoking. Lisinopril 5 Mg Tab 1 Tab PO DAILY Gabapentin 600 Mg Tab 600 Mg PO TID Managed by Pain Management Atenolol 25 Mg Tab 12.5 Mg PO DAILY Ventolin Hfa 18 GM Inh (Albuterol Sulfate) 90 Mcg/Act Aer 2 Puff INH Q4-6H PRN Pharmacy: change to insurance approved equivalent if needed Dulera 120 Act Inh (Mometasone-Formoterol 120 Act Inh) 100-5 Mcg/Act Inh 2 Puff INH BID Reported Tizanidine (Tizanidine HCl) 4 Mg Cap 4 Mg PO TID Managed by Pain Mgmt Paroxetine (Paroxetine HCl) 10 Mg Tab 10 Mg PO DAILY Hydrocodone-Acetaminophen 5-325 mg Tab 1 Tab PO Q4H PRN Managed by Pain Mgmt Ativan (Lorazepam) 0.5 Mg Tab 0.5 Mg PO BID PRN Rx'ed by Psychiatry Trazodone (Trazodone HCl) 50 Mg Tab 100 Mg PO HS Rx'ed by Psychiatry Latuda (Lurasidone) 40 Mg Tab 80 Mg PO DAILY Rx'ed by Psychiatry Allergies: Coded Allergies: codeine (Verified Allergy, Intermediate, skin rash, 01/26/17) Per pt. sulfamethoxazole (Verified Allergy, Intermediate, 01/26/17) intense itching trimethoprim (Verified Allergy, Intermediate, 01/26/17) intense itching Family History Myocardial infarction with in father Myocardial infarction with the mother Social History Long-term smoking history No alcohol abuse No illicit drug abuse Physical Exam Physical Exam GENERAL: NAD, A&Ox3, obese HEAD: Normocephalic. NECK: Supple, trachea midline. No lymphadenopathy. EYES: No scleral icterus. No injection or drainage. CARDIOVASCULAR: Regular rate and rhythm without murmurs, gallops, or rubs. RESPIRATORY: Breath sounds equal bilaterally. No accessory muscle use. GASTROINTESTINAL: Abdomen soft, non-tender, nondistended. MUSCULOSKELETAL: No cyanosis, or edema. SKIN: Warm and dry. NEURO: No focal neurological deficitis. Caprini VTE Risk Assessment Caprini VTE Risk Assessment: Mod/High Risk (score >= 2) Caprini Risk Assessment Model Point Value = 1 Point Value = 2 Point Value = 3 Point Value = 5 Age 41-60 Minor surgery BMI > 25 kg/m2 Swollen legs Varicose veins or History of unexplained or recurrent spontaneous Oral contraceptives or hormone replacement Sepsis (< 1 month) Serious lung disease, including pneumonia (< 1 month) Abnormal pulmonary function Acute myocardial infarction Congestive heart failure (< 1 month) History of inflammatory bowel disease Medical patient at bed rest Age 61-74 Arthroscopic surgery Major open surgery (> 45 min) Laparoscopic surgery (> 45 min) Malignancy Confined to bed (> 72 hours) Immobilizing plaster cast Central venous access Age >= 75 History of VTE Family history of VTE Factor V Leiden Prothrombin [id number] Lupus anticoagulant Anticardiolipin antibodies Elevated serum homocysteine Heparin-induced thrombocytopenia Other congenital or acquired thrombophilia Stroke (< 1 month) Elective arthroplasty Hip, pelvis, or leg fracture Acute spinal cord injury (< 1 month) Prophylaxis Regimen Total Risk Factor Score Risk Level Prophylaxis Regimen 0-1 Low Early ambulation 2 Moderate Order ONE of the following: *Sequential Compression Device (SCD) *Heparin 5000 units SQ BID 3-4 Higher Order ONE of the following medications: *Heparin 5000 units SQ TID *Enoxaparin/Lovenox 40 mg SQ daily (WT < 150 kg, CrCl > 30 mL/min) *Enoxaparin/Lovenox 30 mg SQ daily (WT < 150 kg, CrCl > 10-29 mL/min) *Enoxaparin/Lovenox 30 mg SQ BID (WT < 150 kg, CrCl > 30 mL/min) AND/OR *Sequential Compression Device (SCD) 5 or more Highest Order ONE of the following medications: *Heparin 5000 units SQ TID (Preferred with Epidurals) *Enoxaparin/Lovenox 40 mg SQ daily (WT < 150 kg, CrCl > 30 mL/min) *Enoxaparin/Lovenox 30 mg SQ daily (WT < 150 kg, CrCl > 10-29 mL/min) *Enoxaparin/Lovenox 30 mg SQ BID (WT < 150 kg, CrCl > 30 mL/min) AND *Sequential Compression Device (SCD) Assessment and Plan Problem List: (1) Nicotine dependence ICD Code: F17.200 - Nicotine dependence, unspecified, uncomplicated Status: Acute (2) Chest pain ICD Code: R07.9 - Chest pain, unspecified (3) Gastritis ICD Code: K29.70 - Gastritis, unspecified, without bleeding (4) Diabetic peripheral neuropathy ICD Code: E11.42 - Diabetic peripheral neuropathy Status: Acute (5) Diabetic peripheral neuropathy ICD Code: E11.42 - Diabetic peripheral neuropathy Status: Chronic (6) COPD (chronic obstructive pulmonary disease) ICD Code: J44.9 - COPD (chronic obstructive pulmonary disease) Status: Chronic Assessment and Plan Assessment and plan 51-year-old female admitted with chest pain Chest pain Evaluate for ACS Follow cardiac enzymes Aspirin daily When necessary oxygen When necessary morphine for pain. When necessary nitroglycerin Follow on telemetry Stress Test planned, if first phase of work up is negative. Diabetes mellitus type 2 Follow blood sugars Insulin sliding scale Diabetic diet Hold Lantus for now, resume when stable and not NPO Hypertension Follow BP Continue baseline treatments COPD Hyperlipidemia Diabetic neuropathy Chronic abdominal pain Chronic back pain No exacerbations Continue baseline pain treatment DVT Prophylaxis Angelo Peres MD Jan 26, 2017 18:20
[2017-01-26] MEDS: SUCRALFATE 1 GM/10 ML CUP PO SCH ×2 (18:21→20:36)
[2017-01-26] MEDS: GABAPENTIN 300 MG CAP PO SCH (18:21)
[2017-01-26] MEDS: HEPARIN SODIUM - SQ 10,000 UNITS/ML VIAL SQ SCH (18:22)
[2017-01-26] MEDS: LACTOBACILLUS ACIDOPHILUS TAB PO SCH (18:26)
[2017-01-26] MEDS: ACETAMINOPHEN/HYDROcodone 325 MG/5 MG TAB PO PRN (18:26)
[2017-01-26 20:00] VITALS: BP 130/70; PULSE 69; RESP 18; TEMP 96.5; O2SAT 96
[2017-01-26 20:05] VITALS: PULSE 69
[2017-01-26 20:30] VITALS: O2SAT 98
[2017-01-26 20:30] LABS: CREATINE KINASE 42 U/L (26-192)
[2017-01-26] MEDS: SODIUM CHLORIDE 0.9% FLUSH 10 ML FLUSH IV FLUSH SCH (20:36)
[2017-01-26] MEDS: buPROPion HCL 150 MG SUSTAINED RELEASE TAB PO SCH (20:36)
[2017-01-26] MEDS ORDERED: MOMETASONE INH SCH (21:00)
[2017-01-26] MEDS ORDERED: INSULIN GLARGINE 1,000 UNITS/10 ML VIAL SQ SCH (21:00)
[2017-01-26] MEDS ORDERED: FORMOTEROL INH SCH (21:00)
[2017-01-26] MEDS ORDERED: SODIUM CHLORIDE 0.9% FLUSH 10 ML FLUSH IV FLUSH SCH (21:00)
[2017-01-26] MEDS ORDERED: traZODone HCL 50 MG TAB PO SCH (21:00)
[2017-01-26] MEDS ORDERED: TRIL45CA PO (21:44)
[2017-01-27] VITALS: BP 125/60; PULSE 72; RESP 18; TEMP 96.4; O2SAT 98
[2017-01-27] MEDS: ACETAMINOPHEN/HYDROcodone 325 MG/5 MG TAB PO PRN ×3 (00:12→15:43)
[2017-01-27 02:58] LABS: CREATINE KINASE 38 U/L (26-192)
[2017-01-27 04:00] VITALS: BP 120/58; PULSE 71; RESP 16; TEMP 96.6; O2SAT 93
[2017-01-27] MEDS: HEPARIN SODIUM - SQ 10,000 UNITS/ML VIAL SQ SCH (05:04)
[2017-01-27 06:50] LABS: CHLORIDE 106 MEQ/L (98-107); POTASSIUM 3.8 MEQ/L (3.5-5.1); SODIUM (NA) 141 MEQ/L (136-145)
[2017-01-27 06:58] LABS: ANION GAP 6 MEQ/L (5-15); BICARBONATE 29.5 MEQ/L (21.0-32.0); BLOOD UREA NITROGEN 22 MG/DL (7-18)
[2017-01-27 06:59] LABS: BASOPHIL % 0.6 % (0.0-2.0); EOSINOPHIL # 0.1 TH/MM3 (0-0.4); EOSINOPHIL % 1.8 % (0.0-4.0); HEMATOCRIT 34.1 % (35.0-46.0); LYMPH % 32.6 % (9.0-44.0); LYMPHOCYTE # 2.7 TH/MM3 (1.0-4.8); MEAN CELL VOLUME 59.9 FL (80.0-100.0); MEAN CORPUSCULAR HEMOGLOBIN 18.2 PG (27.0-34.0); MEAN CORPUSCULAR HGB CONC 30.4 % (32.0-36.0); MONO % 5.8 % (0.0-8.0); NEUT % 59.2 % (16.0-70.0); PLATELET COUNT 178 TH/MM3 (150-450); RED CELL DISTRIBUTION WIDTH 14.9 % (11.6-17.2); WHITE BLOOD COUNT 8.3 TH/MM3 (4.0-11.0)
[2017-01-27 07:00] VITALS: PULSE 67
[2017-01-27 07:01] LABS: ALT (GPT) 49 U/L (10-53); AST (GOT) 26 U/L (15-37); GLOMERULAR FILTRATION RATE 66 ML/MIN (>89)
[2017-01-27 07:02] LABS: TOTAL BILIRUBIN ADULT 0.8 MG/DL (0.2-1.0)
[2017-01-27 07:03] LABS: ALKALINE PHOSPHATASE 80 U/L (45-117)
[2017-01-27 07:08] LABS: HEMO FLAGS AUTO DIFF
[2017-01-27 07:47] LABS: KERATOCYTES OCC (NORMAL); OVALOCYTES 1+ (NORMAL); SCAN/DIFF AUTO DIFF CONFIRMED; TARGET CELLS 2+ (NORMAL); TEARDROP RBCS 1+ (NORMAL)
[2017-01-27 07:50] VITALS: O2SAT 95
[2017-01-27 08:00] VITALS: BP_SYST 129; BP_SYST 139; BP_DIAS 68; BP_DIAS 72; PULSE 72; PULSE 77; RESP 16; TEMP 97.6; O2SAT 95
[2017-01-27] MEDS: INSULIN NovoLIN REGULAR SUPPLEMENTAL SCALE SQ SCH ×2 (08:00→12:00)
[2017-01-27] MEDS ORDERED: PARoxetine HCL 20 MG TAB PO SCH (09:00)
[2017-01-27] MEDS ORDERED: ASPIRIN 325 MG TAB PO SCH (09:00)
[2017-01-27] MEDS ORDERED: LURASIDONE 40 MG TAB PO SCH (09:00)
[2017-01-27] MEDS ORDERED: LISINOPRIL 5 MG TAB PO SCH (09:00)
[2017-01-27] MEDS ORDERED: NON-FORMULARY DRUG (Fish Oil-Cholecalciferol (Omega-3 Fish Oil/Vitamin) 1 CAP) PO SCH (09:00)
[2017-01-27] MEDS ORDERED: FENOFIBRATE 48 MG TAB PO SCH (09:00)
[2017-01-27] MEDS: LACTOBACILLUS ACIDOPHILUS TAB PO SCH ×2 (09:07→15:35)
[2017-01-27] MEDS: SUCRALFATE 1 GM/10 ML CUP PO SCH ×2 (09:07→15:16)
[2017-01-27] MEDS: SODIUM CHLORIDE 0.9% FLUSH 10 ML FLUSH IV FLUSH SCH (09:07)
[2017-01-27] MEDS: buPROPion HCL 150 MG SUSTAINED RELEASE TAB PO SCH (09:07)
[2017-01-27] MEDS: GABAPENTIN 300 MG CAP PO SCH ×2 (09:09→15:15)
[2017-01-27] MEDS: ONDANSETRON HCL 4 MG/2 ML VIAL IVP PRN ×2 (09:53→15:44)
[2017-01-27 12:00] VITALS: BP 114/58; PULSE 69; RESP 18; TEMP 97.7; O2SAT 93
[2017-01-27] MEDS ORDERED: REGADENOSON INJ 0.4 MG/5 ML SYR IV ONE (12:59)
--- NOTE | 2017-01-27 13:49 | HHI.PR ---
Subjective Remarks Patient seen and examined today for follow-up on chest pain. Patient states that she is still experiencing intermittent chest discomfort. States that is located left sternal border. Denied any nausea, vomiting, diaphoresis, shortness of breath, dyspnea. Pain was relieved with [place] Objective Vitals Vital Signs Date Time Temp Pulse Resp B/P (MAP) Pulse Ox O2 Delivery O2 Flow Rate FiO2 01/27/17 10:09 18 01/27/17 08:00 97.6 72 16 139/72 (94) 95 01/27/17 07:50 95 Nasal Cannula 2.00 01/27/17 07:00 67 01/27/17 04:00 96.6 71 16 120/58 (78) 93 01/27/17 00:00 96.4 72 18 125/60 (81) 98 01/26/17 20:30 98 Nasal Cannula 2.00 01/26/17 20:05 69 01/26/17 20:00 96.5 69 18 130/70 (90) 96 I/O 01/26/17 01/26/17 01/26/17 01/27/17 01/27/17 01/27/17 07:00 15:00 23:00 07:00 15:00 23:00 Intake Total 80 ml Balance 80 ml Intake Oral 80 ml # Voids 1 # Bowel Movements 0 Result Diagram: 01/27/1740 01/27/17 0540 Objective Remarks GENERAL: Well-developed, well-nourished, in no acute distress. alert and orientated HEENT: Head is normocephalic without any lesions or masses noted. Facial features are symmetric. Eyes: Extraocular muscles are intact. Conjunctivae were clear. NECK: Supple without any masses. Trachea midline no deviation. No JVD, CARDIAC: Regular rhythm, regular rate. S1/S2 are heard. No murmurs gallops or rubs. LUNGS: Clear to auscultation bilaterally. No wheeze, rhonchi or rales. No use of accessory muscles on inspiration or expiration. ABDOMEN: Soft, nontender. Nondistended. Bowel sounds heard in all 4 quadrants. No organomegaly or masses. Negative rebound, negative guarding EXTREMITIES: No edema, pulses are equal bilaterally. No cyanosis or clubbing NEUROLOGY: Mood and affect appear appropriate. Cranial nerves II through XII grossly intact. Moving all extremities, speech is clear Urinary Catheter: No Vascular Central Line Catheter: No A/P Assessment and Plan Chest pain Patient had been ruled out for acute coronary event with serial cardiac enzymes that remain negative, serial EKGs reviewed by myself without any changes. Continue Aspirin daily Continue as necessary oxygen Continue as necessary morphine for pain. Continue as necessary nitroglycerin Chemical stress test was performed and ruled out any underlying ischemia Diabetes mellitus type 2 Accu-Cheks with sliding scale insulin Diabetic diet Hold Lantus for now, resume when stable and not NPO Hypertension Blood pressure is controlled Continue baseline treatments Other chronic medical illnesses to include COPD, Hyperlipidemia, Diabetic neuropathy, Chronic abdominal pain, Chronic back pain, continue home medications and continue outpatient follow-up DVT Prophylaxis Lovenox Discharge Planning Discharge home in stable condition Activity: Ad florian. Diet: Healthy heart diet Medications per medication reconciliation Follow-up primary medical doctor in one week [place] Jan 27, 2017 13:49
--- NOTE | 2017-01-27 13:55 | TR ---
Date Performed: 01/27/2017 Time Performed: 13:12:24 DOCTOR: Ciarra Frey DRUG LIST: CLINICAL HISTORY: REASON FOR TEST: REASON FOR ENDING: OBSERVATION: CONCLUSION: Lexiscan stress test was performed under standard four minute protocol. [place] e was injected one minute prior to ending the test. No electrocardiographic abormalities were present to suggest ischemia. Nuclear imaging and interpretation are pending. COMMENTS:
--- NOTE | 2017-01-27 14:25 | RADRPT ---
EXAM DATE/TIME: 01/27/2017 12:49 [place] COMPARISON: No previous studies available for comparison. INDICATIONS : Left sided chest pain. Angina. DOSE: 26.1 mCi Tc99m Myoview at stress. 8.1 mCi Tc99m Myoview at rest. 0.4 mg Lexiscan STRESS SYMPTOMS: Short of breath. EJECTION FRACTION: 54% MEDICAL HISTORY : Hypertension. Chronic obstructive pulmonary disease. SURGICAL HISTORY : Cholecystectomy. ENCOUNTER: Initial ACUITY: 1 day PAIN SCALE: 2/10 LOCATION: Left chest TECHNIQUE: The patient underwent pharmacologic stress with infusion of prescribed dose. Continuous ECG tracing was monitored during stress. Gated SPECT imaging was performed after stress and conventional SPECT i maging was performed at rest. The examination was performed on a SPECT/CT scanner, both attenuation and non-corrected datasets were reviewed. FINDINGS: DISTRIBUTION: The maximum perfused segment at stress is in the inferolateral wall. PERFUSION STUDY: The pattern of perfusion at stress is within normal limits. GATED STUDY: There is intact wall motion and thickening without hypokinetic or dyskinetic segments. CONCLUSION: 1. Left ventricle perfusion is within normal limits. 2. Normal left ventricle wall motion with calculated ejection fraction of 54%. RISK CATEGORY: Low (<1% Annual Mortality Rate) Bernardo Khan MD on January 27, 2017 at 14:10 Board Certified Radiologist. This report was verified electronically.
--- NOTE | 2017-01-27 14:32 | HHI.DCPOC ---
Discharge Care Plan Diagnosis: (1) Chest pain Goals to Promote Your Health * To prevent worsening of your condition and complications * To maintain your health at the optimal level Directions to Meet Your Goals Take your medications as prescribed Follow your dietary instruction Follow activity as directed Keep your appointments as scheduled Take your immunizations and boosters as scheduled If your symptoms worsen call your PCP, if no PCP go to Urgent Care Center or Emergency Room Smoking is Dangerous to Your Health. Avoid second hand smoke Call the 24-hour hour crisis hotline for domestic abuse at [place] Jan 27, 2017 14:31
--- NOTE | 2017-01-27 18:56 | EKG ---
Date Performed: 01/27/2017 Time Performed: 01:36:37 PTAGE: 51 years EKG: Sinus rhythm LOW QRS VOLTAGE IN PRECORDIAL LEADS PATTERN CONSISTENT WITH PULMONARY DISEASE INCOMPLETE RIGHT BUNDL E BRANCH BLOCK ABNORMAL ECG Compared to prior tracing no significant change PREVIOUS TRACING : 01/26/2017 19.48 DOCTOR: Ciarra Frey Interpretating Date/Time 01/27/2017 18:55:44
--- NOTE | 2017-01-27 18:56 | EKG ---
Date Performed: 01/26/2017 Time Performed: 19:48:05 PTAGE: 51 years EKG: Sinus rhythm POSSIBLE RIGHT VENTRICULAR CONDUCTION DELAY BORDERLINE ECG Compared to prior tracing no significant change PREVIOUS TRACING : 01/26/2017 13.08.39 DOCTOR: Ciarra Frey Interpretating Date/Time 01/27/2017 18:55:33
[2017-02-02] MEDS ORDERED: GLIP5TAB8 PO (22:08)
[2017-02-08] MEDS ORDERED: LANTUS2P SQ (19:13)
== END 2017-01-27 16:11 | disposition home or self-care (01) ==
LOC: PHEDDLT 17:42 → PH3A 17:43
PROVIDERS: ADMIT Internal Medicine; ATTEND Internal Medicine
DX: R07.9 Chest pain, unspecified (principal); R94.31 Abnormal electrocardiogram [ECG] [EKG]; E11.65 Type 2 diabetes mellitus with hyperglycemia; E11.42 Type 2 diabetes mellitus with diabetic polyneuropathy; I10 Essential (primary) hypertension; E78.5 Hyperlipidemia, unspecified; F17.200 Nicotine dependence, unspecified, uncomplicated; J44.9 Chronic obstructive pulmonary disease, unspecified; K29.70 Gastritis, unspecified, without bleeding; Z82.49 Family history of ischemic heart disease and other diseases of the circulatory system; Z79.82 Long term (current) use of aspirin
CPT/HCPCS: 71010; 78452; 80048; 80053; 82550; 82948; 83735; 84484; 85025; 85379; 85610; 85730; 93005; 93017; 96374; 96376; 99285; A9502; G0378; J1644; J2405; J2785